=== PATIENT | female | born 1990 | race Asian ===

== ENCOUNTER 2017-10-31 18:12 | Emergency (ER) | payer OTHER ==
[~2017-10-31] VITALS: Ht 167.6 cm; Wt 82.6 kg
[2017-10-31 19:33] VITALS: BP 135/95; TEMP 99.7
== END 2017-10-31 19:36 | disposition home or self-care (01) ==
LOC: ED 18:12
DX: S29.012A Strain of muscle and tendon of back wall of thorax, initial encounter (principal); V43.52XA Car driver injured in collision with other type car in traffic accident, initial encounter; Y92.89 Other specified places as the place of occurrence of the external cause; Y99.8 Other external cause status
CPT/HCPCS: 99283